=== PATIENT | female | born 1950 ===

== ENCOUNTER 2025-02-18 13:30 | Outpatient (RCR) | payer MEDICARE, SELFPAY ==
[2025-01-19 15:30] LABS: Glucose, Whole Blood 136 mg/dL (60-115)
[2025-01-19 15:30] LABS: Glucose, Whole Blood 90 mg/dL (60-115)
[2025-02-02 12:48] LABS: Glucose, Whole Blood 117 mg/dL (60-115)
[2025-02-05 13:04] LABS: Glucose, Whole Blood 105 mg/dL (60-115)
[2025-02-05 13:05] LABS: Glucose, Whole Blood 106 mg/dL (60-115)
[2025-02-17 12:29] LABS: Glucose, Whole Blood 106 mg/dL (60-115)
[2025-02-17 12:30] LABS: Glucose, Whole Blood 75 mg/dL (60-115)
[2025-02-17 12:30] LABS: Glucose, Whole Blood 92 mg/dL (60-115)
[2025-02-18 15:39] LABS: Glucose, Whole Blood 141 mg/dL (60-115)
== END 2025-02-25 13:47 | disposition home or self-care (01) ==
LOC: HO.CR 13:30
PROVIDERS: Visit Provider Internal Medicine
DX: Z95.2 Presence of prosthetic heart valve (principal)
CPT/HCPCS: 82947; 93798